=== PATIENT | male | born 1985 | race Two or more races ===

== ENCOUNTER 2018-04-18 19:05 | Emergency (ER) | payer MEDICAID ==
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
[2018-04-18] MEDS ORDERED: HYDROGEN PEROXIDE 236 ML BOTTLE TP ONE (19:57)
[2018-04-18] MEDS ORDERED: CEPHALEXIN 500 MG CAP PO ONE (20:12)
[2018-04-18] MEDS ORDERED: SULFAMETHOX/TMP 800/160 MG 1 TAB PO ONE (20:12)
[2018-04-18 20:39] VITALS: BP 144/109
[2018-04-18] MEDS ORDERED: HYDROCOD/APAP 5/325 PREPACK#6 BTL TAKEHOME ONE ×2 (21:14)
== END 2018-04-18 21:21 | disposition home or self-care (01) ==
PROC: 2W3CX1Z Immobilization of Right Lower Arm using Splint (ICD-10-PCS; principal; 2018-04-18)
DX: S09.90XA Unspecified injury of head, initial encounter (principal); S69.91XA Unspecified injury of right wrist, hand and finger(s), initial encounter; S01.01XA Laceration without foreign body of scalp, initial encounter; V89.2XXA Person injured in unspecified motor-vehicle accident, traffic, initial encounter; Y92.410 Unspecified street and highway as the place of occurrence of the external cause; Y93.9 Activity, unspecified; Y99.9 Unspecified external cause status

== ENCOUNTER 2018-06-14 11:17 | Emergency (ER) | payer MEDICAID ==
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
--- NOTE | 2018-06-14 11:51 | CPEKG ---
Test Reason : OPEN Blood Pressure : / mmHG Vent. Rate : 071 BPM Atrial Rate : 069 BPM P-R Int : 180 ms QRS Dur : 109 ms QT Int : 392 ms P-R-T Axes : 038 079 041 degrees QTc Int : [address] elev, probable normal early repol pattern Confirmed by Neno Calvo ([id number]) on 06/14/2018 11:50:17 AM Referred By: PHYSICIAN ED Confirmed By:Neno Calvo
[2018-06-14 12:18] LABS: PLATELET COUNT 285 10^3/uL (150-400)
[2018-06-14 13:19] VITALS: BP 137/96
== END 2018-06-14 13:37 | disposition home or self-care (01) ==
DX: R07.9 Chest pain, unspecified (principal)
CPT/HCPCS: 84484-ER